=== PATIENT | female | born 1970 | race Caucasian/White ===

== ENCOUNTER 2016-09-02 11:36 | Emergency (ER) | payer SELFPAY ==
[2016-09-02] MEDS ORDERED: OXYCODONE HCL 5 MG TABLET PO ONE (11:42)
--- NOTE | 2016-09-02 11:45 | EDPRACDOC ---
- General Information Stated Complaint: HAND PAIN Time Seen by Provider: 09/02/16 11:42 Information Source: Patient Mode of Arrival: Car Home Medications: Home Medications Albuterol Sulfate [Proair Hfa] 2 puff INH Q6H PRN 09/14/14 Tiotropium [place] [Spiriva] 2 puff INH DAILY 09/14/14 Oxycodone Immediate Release [Oxycodone Immediate Release (OxyIR)] 5 mg PO Q6H PRN #15 tab 09/02/16 Allergies/Adverse Reactions: Allergies Allergy/AdvReac Type Severity Reaction Status Date / Time erythromycin base Allergy Edema-Gener Verified 08/19/16 15:04 alized moxifloxacin [From Avelox] Allergy Rash-Locali Verified 08/19/16 15:04 zed moxifloxacin HCl Allergy Rash-Genera Verified 08/19/16 15:04 [From Avelox] lized Penicillins Allergy Difficulty Verified 08/19/16 15:04 Breathing - History of Present Illness Onset: 4 DAYS HPI: PT STATES SLIPPED ON DRIVEWAY 4 DAYS AGO HURT LEFT WRIST AND LATERAL LT HAND. NOW C/O SWELLING PAIN AND DECREASED ROM. Location: Reports: Dorsal, Volar, Ulnar, Radial Dominant Side: Reports: Right Mechanism: Reports: FOOSH Circumstances: Reports: Fall Tetanus Up To Date?: No Pain Severity: Reports: Moderate Associated Signs and Symptoms: Reports: Hand Pain, Other (SWELLLING) ED Past Medical History - History Reviewed Yes Nurses notes reviewed and agree except as marked Travel Outside of [place] in the Last 3 Months?: No - Patient Medical History Respiratory History: Reports: COPD Musculoskeletal History: Reports: Arthritis Psychological History: Denies: Depression Systemic History: Comment Only: Cancer (leukemia) - Social Medical History Smoking Status: Heavy tobacco smoker (5 or more cigarettes/day or daily pipe/ cigar) ETOH: None Substance Abuse: None Lives With: Spouse Lives In: Home EDM Review of Systems - Review of Systems ROS Negative Except as Marked: Yes All systems reviewed and were negative except as marked Constitutional: No Symptoms Reported. negative: Fever, Chills, Weakness, Fatigue, Loss of Appetite Eyes: No Symptoms Reported. negative: Redness, Blurred Vision, Double Vision, Discharge, Pain, Light Sensitive, Photophobia Ears: No Symptoms Reported. negative: Pain, Hearing Loss, Drainage, Ear Pulling Throat: No Symptoms Reported. negative: Pain, Swelling Nose: No Symptoms Reported. negative: Congestion, Bleeding, Discharge, Injection, Swelling, Deformity, Ecchymosis, Tender, Abrasion, Laceration Mouth: No Symptoms Reported. negative: Pain, Drooling Respiratory: No Symptoms Reported. negative: Cough, Brassy Cough, Barky Cough, Shortness of Breath, Wheezing, Hemoptysis Cardiovascular: No Symptoms Reported. negative: Chest Pain, Palpitations, Syncope, Edema, Orthopnea, PND, Skin Mottling, Cyanosis Gastrointestinal: No Symptoms Reported. negative: Pain, Constipation, Nausea, Vomiting, Diarrhea, Melena, Formula Intolerance Genitourinary: No Symptoms Reported. negative: Dysuria, Hematuria, Frequency, Discharge, Bleeding, Testicular Pain, Neurological: No Symptoms Reported. negative: Headache, Dizziness, Seizure, Numbness, Weakness, Speech Difficulty, Gait Difficulty Musculoskeletal: Hand (LT LATERAL), Wrist (LT). negative: Arm, Ankle, Back, Chestwall, Elbow, Forearm, Femur, Foot, Hip, Knee, Leg, Neck, Pelvis, Ribs, Shoulder Integumentary: No Symptoms Reported. negative: Itching, Rash, Bruising, Wound Allergic/Immunologic: No Symptoms Reported. negative: Hives, Itching Hematologic: No Symptoms Reported. negative: Lymphadenopathy, Easy Bruising, Easy Bleeding Endocrine: No Symptoms Reported. negative: Weight Gain, Weight Loss Psychiatric: No Symptoms Reported. negative: Anxiety, Depression, Hallucinations, Insomnia, Suicidal - Physical Exam Constitutional: Alert (Awake), No apparent distress Oriented to: Time, Person, Place Last recorded Vital Signs: Oxygen Pulse Oxygen Saturation O2 Device Oxygen Flow Rate Fraction of Inspired Oxygen ( FIO2) - HEENT Head: Normal ( normocephalic) Eye Exam: Normal (PERRL, EOMI, Sclera white) Oropharynx: Normal (Pharynx:Moist without exudate,Gums-no swelling) Tympanic Membrane: Normal ENT EAC: Normal TMJ: Normal Nose: No Symptoms Reported (septum midline) Neck: Normal (FROM, trachea at midline) - Respiratory/Cardiovascular Respiratory: Normal - CTA (BBS clear to auscultation without adventitious sounds ) Cardiovascular: Normal (RRR without murmur, gallop or rub) - GI Auscultation: Normal (NABS) Palpation: Normal (Soft,No rebound or guarding, non distended) Tenderness: Non tender Weston's Sign: Negative - Musculoskeletal Back: Normal (Non-Tender) Extremities: Normal (Normal tone, Pulses 2+ No cyanosis or edema, FROM) - Integumentary Skin: Normal, Warm, Dry Lymphatics: Normal (no adenopathy) - Neurologic Memory Impaired: Normal Motor Function: Normal (Normal tone, Pulses 2+ No cyanosis or edema, FROM) Cranial Nerve: Normal (CN II-X11 intact sensation, strength 5/5) Cerebellar: Normal Mood Description: Normal Perception: Normal ED Wrist Problem Exam Wrist Symptoms: Swelling, Limited ROM, Mild Tenderness, Moderate Tenderness Hand Symptoms: Swelling, Moderate Tenderness (LEFT LATERAL) Forearm Symptoms: Normal Distal Function/Circulation: Normal - Integumentary Skin: Normal Lymphatics: Normal ED Procedures - Splinting HAND Location: LT Splint: ulnar (GUTTER) Pre-Proc Neuro Vasc Exam: normal Post-Proc Neuro Vasc Exam: normal Other Devices: Sling ED Wrist Problem MDM - Differential Diagnosis Differential Diagnosis: Contusion, Dislocation, Fracture-Carpal, Fracture-Radius /Ulna, Sprain - Diagnostic Imaging WRIST Image interpreted by: Radiologist Diagnostic Imaging Comments: IMPRESSION: No fracture or dislocation. Osteoarthritis. Possible foreign object in the thenar eminence soft tissues. HAND Image interpreted by: Radiologist Diagnostic Imaging Comments: IMPRESSION: No fracture or dislocation. Decision Time to Discharge: 13:04 - Departure Disposition: Home Condition: Stable Final Diagnosis: Fracture of hand Instructions: Hand Fracture (ED) Education/Counseling Given To: Patient Education/Counseling Given Regarding: Diagnosis, Treatment, Prognosis, Follow Up Referrals: None,No Provider [Primary Care Provider] - One Week Russel Leblanc MD [Staff Physician] - One Week Prescriptions: Oxycodone Immediate Release [Oxycodone Immediate Release (OxyIR)] 5 mg PO Q6H PRN #15 tab PRN Reason: Pain Additional Instructions: ROSETTE
[2016-09-02 11:46] VITALS: BP 138/99; PULSE 96; TEMP 97.7; BMI 36.1
--- NOTE | 2016-09-02 12:46 | DIRPT ---
CLINICAL DATA: Fell 4 days ago, slipping in a puddle. EXAM: LEFT WRIST - COMPLETE 3+ VIEW COMPARISON: None. FINDINGS: No evidence of fracture or dislocation. There is osteoarthritis at the radiocarpal joint and of the intercarpal joints. Small radiodense entity in the thenar eminence could represent a foreign object. IMPRESSION: No fracture or dislocation. Osteoarthritis. Possible foreign object in the thenar eminence soft tissues. Electronically Signed By: Easton Gaston M.D. On: 09/02/2016 12:44
--- NOTE | 2016-09-02 12:46 | DIRPT ---
CLINICAL DATA: Fall onto LEFT hand. Fall 4 days ago after slipping EXAM: LEFT HAND - COMPLETE 3+ VIEW COMPARISON: None. FINDINGS: No evidence of fracture of the carpal or metacarpal bones. Radiocarpal joint is intact. Phalanges are normal. No soft tissue injury. IMPRESSION: No fracture or dislocation. Electronically Signed By: Alfredo Jaffe M.D. On: 09/02/2016 12:44
== END 2016-09-02 13:23 | disposition home or self-care (01) ==
LOC: EDMC 11:36
DX: S62.92XA Unspecified fracture of left hand, initial encounter for closed fracture (principal); W01.0XXA Fall on same level from slipping, tripping and stumbling without subsequent striking against object, initial encounter; J44.9 Chronic obstructive pulmonary disease, unspecified; F17.200 Nicotine dependence, unspecified, uncomplicated
CPT/HCPCS: 29125; 73110; 73130; 99283; J3490

== ENCOUNTER 2016-09-14 14:18 | Emergency (ER) | payer SELFPAY ==
[2016-09-14 14:38] VITALS: BP 149/90; PULSE 118; TEMP 98.5; BMI 35.3
--- NOTE | 2016-09-14 15:25 | EDPRACDOC ---
- General Information Chief Complaint: Knee Pain Stated Complaint: BILATERAL LEG/HAND PAIN Time Seen by Provider: 09/14/16 15:07 Mode of Arrival: Car Home Medications: Home Medications Albuterol Sulfate [Proair Hfa] 2 puff INH Q6H PRN 09/14/14 Tiotropium [place] [Spiriva] 2 puff INH DAILY 09/14/14 Oxycodone Immediate Release [Oxycodone Immediate Release (OxyIR)] 5 mg PO Q6H PRN #15 tab 09/02/16 Prednisone [Deltasone] 20 mg PO BID #12 tablet 09/02/16 Oxycodone Immediate Release [Oxycodone Immediate Release (OxyIR)] 5 mg PO Q6H PRN #15 tab 09/14/16 Prednisone [Deltasone, Orasone] 20 mg PO DAILY #20 tab 09/14/16 Allergies/Adverse Reactions: Allergies Allergy/AdvReac Type Severity Reaction Status Date / Time erythromycin base Allergy Edema-Gener Verified 08/19/16 15:04 alized moxifloxacin [From Avelox] Allergy Rash-Locali Verified 08/19/16 15:04 zed moxifloxacin HCl Allergy Rash-Genera Verified 08/19/16 15:04 [From Avelox] lized Penicillins Allergy Difficulty Verified 08/19/16 15:04 Breathing - History of Present Illness Onset: 2 weeks HPI: Pt c/o bilateral knee pain x 2 weeks. C/o swelling. Denies injury, redness. Pt states she knows it her RA acting up but doesn't have insurance to f/u with specialist. Knee Problem Location: Bilateral Mechanism: Reports: No Trauma Circumstances: Reports: Spontaneous Relevant History: Reports: Arthritis Able to Bear Weight: Limited Pain Severity: Reports: Moderate Associated Signs & Symptoms: Reports: Swelling ED Past Medical History - History Reviewed Yes Nurses notes reviewed and agree except as marked - Patient Medical History Respiratory History: Reports: COPD Musculoskeletal History: Reports: Arthritis Psychological History: Denies: Depression Systemic History: Comment Only: Cancer (leukemia) - Social Medical History Smoking Status: Heavy tobacco smoker (5 or more cigarettes/day or daily pipe/ cigar) ETOH: None Substance Abuse: None EDM Review of Systems - Review of Systems Constitutional: No Symptoms Reported. negative: Fever, Chills, Weakness, Fatigue, Loss of Appetite Neurological: No Symptoms Reported. negative: Headache, Dizziness, Seizure, Numbness, Weakness, Speech Difficulty, Gait Difficulty Musculoskeletal: Knee Integumentary: No Symptoms Reported. negative: Itching, Rash, Bruising, Wound Allergic/Immunologic: No Symptoms Reported. negative: Hives, Itching Hematologic: No Symptoms Reported. negative: Lymphadenopathy, Easy Bruising, Easy Bleeding Psychiatric: No Symptoms Reported. negative: Anxiety, Depression, Hallucinations, Insomnia, Suicidal - Physical Exam Constitutional: Alert Oriented to: Time, Person, Place Last recorded Vital Signs: Last Vital Signs Temp 98.5 F 09/14/16 14:37 Pulse 118 09/14/16 14:37 Resp 24 09/14/16 14:37 BP 149/90 09/14/16 14:37 Pulse Ox 97 09/14/16 14:37 Oxygen Pulse Oxygen Saturation 97 O2 Device Room Air Oxygen Flow Rate Fraction of Inspired Oxygen ( FIO2) - HEENT Head: Normal ( normocephalic) - Respiratory/Cardiovascular Respiratory: Normal - CTA (BBS clear to auscultation without adventitious sounds ) Cardiovascular: Normal (RRR without murmur, gallop or rub) - Musculoskeletal Extremities: Normal (Normal tone, Pulses 2+ No cyanosis or edema, FROM) - Integumentary Skin: Normal, Warm, Dry Lymphatics: Normal (no adenopathy) - Neurologic Memory Impaired: Normal Motor Function: Normal (Normal tone, Pulses 2+ No cyanosis or edema, FROM) Mood Description: Normal Perception: Normal ED Knee Problem Phys Exam - Musculoskeletal Knee: Swelling (bilateral), Moderate Tenderness Knee Ligaments: Normal Knee Meniscus: Normal Thigh: Normal Lower Leg: Normal Distal Function/Circulation: Normal - Integumentary Skin: Normal Lymphatics: Normal - Differential Diagnosis DJD Arthritis, Rheumatoid Arthritis, Sprain Decision Time to Discharge: 15:25 - Departure Disposition: Home Condition: Good Final Diagnosis: Rheumatoid arthritis of knee Instructions: RICE: Routine Care for Injuries, Rheumatoid Arthritis (ED) Education/Counseling Given To: Patient Education/Counseling Given Regarding: Diagnosis, Treatment, Follow Up Referrals: None,No Provider [Primary Care Provider] - One Week Howard Sevilla MD [Staff Physician] - One Week Prescriptions: Oxycodone Immediate Release [Oxycodone Immediate Release (OxyIR)] 5 mg PO Q6H PRN #15 tab PRN Reason: Pain Prednisone [Deltasone, Orasone] 20 mg PO DAILY #20 tab Additional Instructions: Follow up with [facility] for assistance with finding personal MD.
== END 2016-09-14 15:38 | disposition home or self-care (01) ==
LOC: ED 14:18
DX: M06.9 Rheumatoid arthritis, unspecified (principal); M25.561 Pain in right knee; M25.562 Pain in left knee
CPT/HCPCS: 99282